=== PATIENT | female | born 1980 | race Caucasian/White ===

== ENCOUNTER 2019-12-05 09:31 | Emergency (ER) | payer MEDICARE ==
[~2019-12-05] VITALS: Ht 180.3 cm; Wt 75.5 kg
[2019-12-05] MEDS ORDERED: KETOROLAC 30 MG/1 ML ONE (10:24)
[2019-12-05] MEDS ORDERED: PROCHLORPERAZINE 5 MG/ML, 2ML ONE (10:24)
[2019-12-05] MEDS ORDERED: DIPHENHYDRAMINE 50 MG/ML, 1ML ONE (10:27)
[2019-12-05] MEDS ORDERED: PROCHLORPERAZINE 5 MG/ML, 2ML IVPush ONE (10:30)
[2019-12-05] MEDS ORDERED: KETOROLAC 30 MG/1 ML IVPush ONE (10:30)
[2019-12-05] MEDS ORDERED: SODIUM CHLORIDE 0.9% 1,000ML IVBOLUS ONE (10:30)
[2019-12-05] MEDS ORDERED: SODIUM CHLORIDE FLUSH 10ML SYR IVF ONE (10:30)
[2019-12-05] MEDS ORDERED: DIPHENHYDRAMINE 50 MG/ML, 1ML IVPush ONE (10:30)
--- NOTE | 2019-12-05 10:37 | NUR ---
PT PRESENTS TO ED WITH C/O RIGHT SIDED HEADACHE PRESENT X 1 MONTH, PT DENIES ANY OTHER SX. PT HAS FULL ROM OF NECK, NO STIFFNESS NOTED. PT STATES SYMPTOMS ARE NOT MORE INTENSE TODAY, SHE HAS BEEN IN A REHAB FOR METH X 1 MONTH AND UNABLE TO LEAVE AND BREAK QUARANTINE FOR WORKUP. PT IS A&OX4, NO NEURO DEFICITS. PUPILS EQUAL, ROUND AND REACTIVE. NO DRIFT, EQUAL GRASP BILATERALLY. BP AND SPO2 MONITORS IN PLACE. PIV PLACED BY TASK JANEL CARRION, PT MEDICATED PER EMAR, TOLERATED WELL. PT AND MOTHER (AT BEDSIDE) UPDATED WITH POC.
--- NOTE | 2019-12-05 11:10 | NUR ---
PT TO CT, PT REMAINS A&O, RESPS EVEN AND UNLABORED, HEADACHE UNCHANGED.
[2019-12-05 11:20] LABS: BASOPHILS # (AUTO) 0.01 x10^3/uL (0-0.1); BASOPHILS % (AUTO) 0 % (0-1); EOSINOPHILS # (AUTO) 0.14 x10^3/uL (0-0.4); EOSINOPHILS % (AUTO) 2 % (1-7); LYMPHOCYTES # (AUTO) 1.04 x10^3/uL (1-3.4); LYMPHOCYTES % (AUTO) 17 % (22-44); MD NO; MEAN CORPUSCULAR HEMOGLOBIN 31.2 pg (27.0-34.8); MEAN CORPUSCULAR HGB CONC 33.6 g/dL (32.4-35.8); MEAN CORPUSCULAR VOLUME 92.8 fL (80-100); MEAN PLATELET VOLUME 8.5 fL (7.4-10.4); MONOCYTES # (AUTO) 0.34 x10^3/uL (0.2-0.8); MONOCYTES % (AUTO) 6 % (2-9); NEUTROPHILS % (AUTO) 75 % (42-75); PLATELET COUNT 266 x10^3/uL (130-400); RED CELL DISTRIBUTION WIDTH 14.6 % (9.6-15.2)
--- NOTE | 2019-12-05 11:20 | NUR ---
PT BACK FROM CT.
[2019-12-05 11:23] LABS: ANION GAP 9 mmol/L (5-15); CHLORIDE 113 mmol/L (98-107); CREATININE 0.76 mg/dL (0.55-1.02)
[2019-12-05 11:33] VITALS: BP 116/72
[2019-12-05] MEDS ORDERED: ACETAMINOPHEN 500 MG TABLET PO ONE (12:30)
--- NOTE | 2019-12-05 12:34 | NUR ---
pt notes headache unchanged, pt remains a&o, resps even and unlabored, speech clear. edamol alonzo notified that pt's headache is unchanged. edpa ordered tylenol, pt declined tylenol stating she will take this at home. pt given dc instructions and script for motrin/tylenol, educated not to drive d/t sedative effects of meds given. piv dc'd with tip intact, pt ambulatory to dc desk with steady gait accmopanied by mother.
== END 2019-12-05 12:34 | disposition home or self-care (01) ==
LOC: ED 10:15
DX: R51 Headache (principal); R11.2 Nausea with vomiting, unspecified; F17.200 Nicotine dependence, unspecified, uncomplicated
CPT/HCPCS: 36415; 70450; 80048; 85025; 96361; 96374; 96375; 99284; J0780; J1200; J1885; J7030